=== PATIENT | male | born 1945 | race Caucasian/White ===

== ENCOUNTER 2017-07-27 00:49 | Inpatient (IN) | payer MEDICARE, OTHER ==
[~2017-07-27] VITALS: Ht 182.9 cm; Wt 90.7 kg
[2017-07-27] MEDS ORDERED: ASPI-650 PO (01:25)
[2017-07-27] MEDS ORDERED: ONDANSETRON 2MG/ML, 2ML IVPush ONE (01:30)
[2017-07-27] MEDS ORDERED: SODIUM CHLORIDE 0.9% 1,000ML IVBOLUS ONE (01:30)
[2017-07-27] MEDS ORDERED: HYDROmorphone 1 MG/ML, 1ML IVPush PRN (01:30)
[2017-07-27] MEDS ORDERED: HYDROmorphone 2 MG/ML, 1ML IVPush PRN (02:00)
[2017-07-27] MEDS ORDERED: VANCOMYCIN 1,700 MG in SODIUM CHLORIDE 0.9% 250 ML IV ONE (02:00)
[2017-07-27] MEDS ORDERED: hydrALAzine 20 MG/ML, 1ML IVPush PRN (02:00)
[2017-07-27] MEDS ORDERED: ONDANSETRON 2MG/ML, 2ML IVPush PRN ×2 (02:00→08:00)
[2017-07-27] MEDS ORDERED: VANCOMYCIN PER PHARMACY MC PRN ×2 (02:00)
[2017-07-27 02:12] LABS: HEMATOCRIT 34.7 % (39.2-51.8); HEMOGLOBIN 11.6 g/dL (13.7-18.0)
[2017-07-27 02:21] LABS: ASPARTATE AMINO TRANSFERASE 5 U/L (15-37); BLOOD UREA NITROGEN 14 mg/dL (7-18)
[2017-07-27] MEDS ORDERED: PHARMACOKINETIC MONITORING MC PRN (03:00)
[2017-07-27 03:50] VITALS: BP 123/72
[2017-07-27] MEDS: MEROPENEM 1 GM in SODIUM CHLORIDE 0.9% 50 ML IV SCH ×2 (04:23→15:10)
[2017-07-27] MEDS: LACTATED RINGERS 1,000 ML IV SCH ×2 (04:24→21:06)
[2017-07-27 07:21] VITALS: BP 130/72
[2017-07-27] MEDS: ENOXAPARIN 40 MG/0.4 ML SQ SCH (08:21)
[2017-07-27] MEDS ORDERED: NALOXONE 1 MG/ML, 2ML ONE (08:49)
[2017-07-27] MEDS ORDERED: FLUMAZENIL 0.1 MG/1 ML, 5ML ONE (08:49)
[2017-07-27] MEDS ORDERED: MIDAZOLAM 1 MG/ML, 5ML ONE (08:49)
[2017-07-27] MEDS ORDERED: FENTANYL PF 100 MCG/2ML ONE (08:49)
[2017-07-27] MEDS ORDERED: LIDOCAINE 1%, 20ML ONE (08:51)
[2017-07-27] MEDS: PANTOPRAZOLE 40 MG IV IVPush SCH (10:31)
[2017-07-27 13:48] VITALS: BP 111/66
[2017-07-27 17:31] VITALS: BP 123/72
[2017-07-27] MEDS: DIPHENHYDRAMINE 50 MG CAPSULE PO PRN (21:06)
[2017-07-27 21:25] VITALS: BP 107/61
[2017-07-28] MEDS ORDERED: VANCOMYCIN 1,700 MG in SODIUM CHLORIDE 0.9% 250 ML IV SCH (01:00)
[2017-07-28 01:37] VITALS: BP 120/63
[2017-07-28] MEDS: MEROPENEM 1 GM in SODIUM CHLORIDE 0.9% 50 ML IV SCH (03:09)
[2017-07-28 05:27] LABS: BLOOD UREA NITROGEN 16 mg/dL (7-18)
[2017-07-28 05:28] LABS: HEMATOCRIT 31.1 % (39.2-51.8); HEMOGLOBIN 10.4 g/dL (13.7-18.0); WHITE BLOOD COUNT 10.4 x10^3/uL (3.4-10)
[2017-07-28 07:30] VITALS: BP 107/66
[2017-07-28] MEDS: PANTOPRAZOLE 40 MG IV IVPush SCH (08:27)
[2017-07-28] MEDS: LACTATED RINGERS 1,000 ML IV SCH ×2 (10:00→21:17)
[2017-07-28] MEDS ORDERED: DOCUSATE 100 MG CAPSULE ONE (10:53)
[2017-07-28] MEDS: DOCUSATE 100 MG CAPSULE PO SCH ×2 (10:55→19:59)
[2017-07-28] MEDS: ENOXAPARIN 40 MG/0.4 ML SQ SCH (10:55)
[2017-07-28] MEDS ORDERED: LACTOBACILLUS CHEW TABLET PO SCH (11:00)
[2017-07-28] MEDS ORDERED: CEFAZOLIN 2,000 MG in SODIUM CHLORIDE 0.9% 50 ML IV SCH (12:00)
[2017-07-28 13:10] VITALS: BP 107/64
[2017-07-28] MEDS: LACTOBACILLUS CHEW TABLET PO SCH ×2 (16:58→19:59)
[2017-07-28] MEDS ORDERED: CEFAZOLIN IV SCH (17:48)
[2017-07-28] MEDS ORDERED: [UNRECOGNIZED DRUG - OTHER] IV SCH (17:48)
[2017-07-28 19:06] VITALS: BP 121/72
[2017-07-28] MEDS: CEFAZOLIN PMX 2GM/50ML 50 ML IVPB SCH (19:59)
[2017-07-28] MEDS: DIPHENHYDRAMINE 50 MG CAPSULE PO PRN (21:17)
[2017-07-29 03:12] VITALS: BP 125/71
[2017-07-29] MEDS: CEFAZOLIN PMX 2GM/50ML 50 ML IVPB SCH ×3 (04:08→20:57)
[2017-07-29 05:48] LABS: HEMATOCRIT 33.1 % (39.2-51.8); HEMOGLOBIN 11.4 g/dL (13.7-18.0); WHITE BLOOD COUNT 8.2 x10^3/uL (3.4-10)
[2017-07-29 05:50] LABS: BLOOD UREA NITROGEN 15 mg/dL (7-18)
[2017-07-29 06:57] VITALS: BP 118/80
[2017-07-29] MEDS: DOCUSATE 100 MG CAPSULE PO SCH ×2 (09:00→22:37)
[2017-07-29] MEDS: PANTOPRAZOLE 40 MG IV IVPush SCH (09:16)
[2017-07-29] MEDS: LACTOBACILLUS CHEW TABLET PO SCH ×3 (09:17→22:37)
[2017-07-29] MEDS: LACTATED RINGERS 1,000 ML IV SCH ×2 (09:21→22:37)
[2017-07-29] MEDS: ENOXAPARIN 40 MG/0.4 ML SQ SCH (10:22)
[2017-07-29 13:37] VITALS: BP 130/80
[2017-07-29 21:13] VITALS: BP 131/81
[2017-07-29] MEDS ORDERED: IBUPROFEN 200 MG TABLET PO PRN (22:30)
[2017-07-30 03:40] VITALS: BP 149/78
[2017-07-30] MEDS: CEFAZOLIN PMX 2GM/50ML 50 ML IVPB SCH ×3 (04:53→19:42)
[2017-07-30 07:26] VITALS: BP 134/81
[2017-07-30] MEDS: PANTOPROZOLE 40MG TABLET PO SCH (07:39)
[2017-07-30] MEDS: DOCUSATE 100 MG CAPSULE PO SCH ×2 (07:39→19:42)
[2017-07-30] MEDS: LACTOBACILLUS CHEW TABLET PO SCH ×3 (07:39→19:42)
[2017-07-30] MEDS: ENOXAPARIN 40 MG/0.4 ML SQ SCH (09:56)
[2017-07-30] MEDS: LACTATED RINGERS 1,000 ML IV SCH (12:09)
[2017-07-30 12:53] VITALS: BP 136/77
[2017-07-30 20:00] VITALS: BP 141/76
[2017-07-31 02:11] VITALS: BP 134/75
[2017-07-31] MEDS: LACTATED RINGERS 1,000 ML IV SCH ×2 (02:16→15:52)
[2017-07-31 03:31] VITALS: BP 138/62
[2017-07-31] MEDS: CEFAZOLIN PMX 2GM/50ML 50 ML IVPB SCH ×3 (04:33→19:48)
[2017-07-31 05:46] LABS: HEMATOCRIT 36.4 % (39.2-51.8); HEMOGLOBIN 12.6 g/dL (13.7-18.0); WHITE BLOOD COUNT 7.6 x10^3/uL (3.4-10)
[2017-07-31 05:52] LABS: BLOOD UREA NITROGEN 12 mg/dL (7-18)
[2017-07-31 05:57] LABS: ASPARTATE AMINO TRANSFERASE 10 U/L (15-37)
[2017-07-31 07:19] VITALS: BP 131/76
[2017-07-31] MEDS: PANTOPROZOLE 40MG TABLET PO SCH (07:28)
[2017-07-31] MEDS: LACTOBACILLUS CHEW TABLET PO SCH ×3 (07:28→19:49)
[2017-07-31] MEDS: DOCUSATE 100 MG CAPSULE PO SCH ×2 (09:00→19:49)
[2017-07-31] MEDS: ENOXAPARIN 40 MG/0.4 ML SQ SCH (11:58)
[2017-07-31 12:51] VITALS: BP 134/79
[2017-07-31 21:12] VITALS: BP 117/69
[2017-08-01 03:59] VITALS: BP 137/78
[2017-08-01] MEDS: CEFAZOLIN PMX 2GM/50ML 50 ML IVPB SCH ×3 (04:17→23:09)
[2017-08-01 04:38] LABS: HEMATOCRIT 34.4 % (39.2-51.8); HEMOGLOBIN 11.7 g/dL (13.7-18.0)
[2017-08-01 04:49] LABS: ASPARTATE AMINO TRANSFERASE 18 U/L (15-37); BLOOD UREA NITROGEN 14 mg/dL (7-18)
[2017-08-01] MEDS: LACTATED RINGERS 1,000 ML IV SCH ×2 (04:55→18:15)
[2017-08-01 06:44] VITALS: BP 136/83
[2017-08-01] MEDS: PANTOPROZOLE 40MG TABLET PO SCH (08:27)
[2017-08-01] MEDS: LACTOBACILLUS CHEW TABLET PO SCH ×3 (08:27→23:09)
[2017-08-01] MEDS: DOCUSATE 100 MG CAPSULE PO SCH ×2 (09:00→23:09)
[2017-08-01] MEDS: ENOXAPARIN 40 MG/0.4 ML SQ SCH (12:00)
[2017-08-01 13:44] VITALS: BP 127/76
[2017-08-01 14:01] VITALS: BP 157/97
[2017-08-01 20:07] VITALS: BP 127/71
[2017-08-02 02:46] VITALS: BP 143/76
[2017-08-02 06:43] VITALS: BP 135/72
[2017-08-02] MEDS: LACTATED RINGERS 1,000 ML IV SCH ×2 (07:35→23:09)
[2017-08-02] MEDS: DOCUSATE 100 MG CAPSULE PO SCH ×2 (09:00→23:09)
[2017-08-02] MEDS: CEFAZOLIN PMX 2GM/50ML 50 ML IVPB SCH (09:41)
[2017-08-02] MEDS: PANTOPROZOLE 40MG TABLET PO SCH (09:41)
[2017-08-02] MEDS: LACTOBACILLUS CHEW TABLET PO SCH ×3 (09:42→23:09)
[2017-08-02] MEDS: ENOXAPARIN 40 MG/0.4 ML SQ SCH (12:00)
[2017-08-02 13:16] VITALS: BP 133/76
[2017-08-02] MEDS ORDERED: ERTAPENEM 1 GM in SODIUM CHLORIDE 0.9% 50 ML IV SCH (16:30)
[2017-08-02 20:02] VITALS: BP 126/69
[2017-08-03 02:52] VITALS: BP 141/82
[2017-08-03] MEDS: PANTOPROZOLE 40MG TABLET PO SCH (08:29)
[2017-08-03] MEDS: LACTOBACILLUS CHEW TABLET PO SCH ×2 (08:29→16:16)
[2017-08-03] MEDS: DOCUSATE 100 MG CAPSULE PO SCH (08:29)
[2017-08-03 08:36] VITALS: BP 130/79
[2017-08-03] MEDS: LACTATED RINGERS 1,000 ML IV SCH (10:15)
[2017-08-03] MEDS: ENOXAPARIN 40 MG/0.4 ML SQ SCH (12:45)
[2017-08-03] MEDS ORDERED: ERTAPENEM 1 GM in SODIUM CHLORIDE 0.9% 50 ML IV SCH (13:00)
[2017-08-03] MEDS ORDERED: ACID1TAB7 PO (13:42)
[2017-08-03] MEDS ORDERED: PANT40TA5 PO (13:42)
[2017-08-03] MEDS ORDERED: ERTA1VIA IV (14:10)
[2017-08-03 16:37] VITALS: BP 131/81
== END 2017-08-03 18:25 | disposition home or self-care (01) | DRG 871 ==
LOC: ED 01:45 → EDIP 01:50 → ED 02:22 → 4NOR 03:07
PROVIDERS: ADMIT Family Medicine; ATTEND Family Medicine
PROC: 0W9F30Z Drainage of Abdominal Wall with Drainage Device, Percutaneous Approach (ICD-10-PCS; 2017-07-27)
PROC: 02HV33Z Insertion of Infusion Device into Superior Vena Cava, Percutaneous Approach (ICD-10-PCS; principal; 2017-07-30)
PROC: B5181ZA Fluoroscopy of Superior Vena Cava using Low Osmolar Contrast, Guidance (ICD-10-PCS; 2017-07-30)
PROC: B548ZZA Ultrasonography of Superior Vena Cava, Guidance (ICD-10-PCS; 2017-07-30)
DX: A41.9 Sepsis, unspecified organism (principal); K65.1 Peritoneal abscess; K65.0 Generalized (acute) peritonitis; E44.0 Moderate protein-calorie malnutrition; R18.8 Other ascites; E87.1 Hypo-osmolality and hyponatremia; D64.9 Anemia, unspecified; I10 Essential (primary) hypertension; Z90.79 Acquired absence of other genital organ(s); Z87.891 Personal history of nicotine dependence; Z85.46 Personal history of malignant neoplasm of prostate; Z79.2 Long term (current) use of antibiotics; Z80.42 Family history of malignant neoplasm of prostate; Z68.27 Body mass index [BMI] 27.0-27.9, adult
CPT/HCPCS: 36415; 36569; 49406; 75989; 76937; 77001; 80048; 80053; 83735; 85025; 85651; 86140; 87040; 87070; 87075; 87077; 87147; 87186; 87205; 96374; 96375; 99156; 99157; J0690; J1335; J1650; J2185; J2250; J2405; J3010; J3370; J3490; C1729; C1751; C1769; C9113; J2310; J7030; J7050; J7120